=== PATIENT | female | born 1975 | race Caucasian/White ===

== ENCOUNTER 2021-05-17 23:48 | Emergency (ER) | payer OTHER ==
[~2021-05-17 23:48] MED LIST: IBUPROFEN600 MG PO
[2021-05-18 01:38] LABS: HEMOGLOBIN 13.8 gm/dl (12.3-15.3); RED BLOOD COUNT 4.5 M/UL (4.00-5.10)
[2021-05-18 02:01] LABS: BUN/CREATININE RATIO 4 (0-10)
== END 2021-05-18 03:00 | disposition left against medical advice (07) ==
LOC: ER1 23:48
PROVIDERS: Physician Assistant
DX: M79.602 Pain in left arm (principal); E78.5 Hyperlipidemia, unspecified; F17.210 Nicotine dependence, cigarettes, uncomplicated; Z88.0 Allergy status to penicillin; Z88.8 Allergy status to other drugs, medicaments and biological substances
CPT/HCPCS: 71045; 72125; 73030; 80053; 82550; 82553; 83874; 83880; 84484; 85025; 93005; 99284

== ENCOUNTER 2021-06-26 17:56 | Emergency (ER) | payer OTHER ==
[2021-06-26] MEDS ORDERED: Voltaren Gel 1 % TOP (18:39)
[2021-06-26] MEDS ORDERED: NORFLEX 100 MG100 MG PO (18:39)
== END 2021-06-26 18:47 | disposition home or self-care (01) ==
LOC: ER1 17:56
DX: G89.29 Other chronic pain (principal); M54.2 Cervicalgia; F17.210 Nicotine dependence, cigarettes, uncomplicated; E78.5 Hyperlipidemia, unspecified; Z88.8 Allergy status to other drugs, medicaments and biological substances; Z79.899 Other long term (current) drug therapy
CPT/HCPCS: 99283; J1885; J2270

== ENCOUNTER 2021-08-04 23:14 | Emergency (ER) | payer OTHER ==
[~2021-08-04 23:14] MED LIST changes: +NORFLEX 100 MG100 MG PO; +Voltaren Gel 1 % TOP
[2021-08-05] MEDS ORDERED: FEXMID7.5 MG PO (01:39)
[2021-08-05] MEDS ORDERED: MOBIC15 MG PO (01:39)
== END 2021-08-05 02:03 | disposition home or self-care (01) ==
LOC: ER1 23:14
DX: G89.29 Other chronic pain (principal); M54.2 Cervicalgia; F17.210 Nicotine dependence, cigarettes, uncomplicated
CPT/HCPCS: 96372; 99283; J1885; J2270

== ENCOUNTER 2021-09-15 17:28 | Emergency (ER) | payer OTHER ==
[~2021-09-15 17:28] MED LIST changes: +FEXMID7.5 MG PO; +MOBIC15 MG PO
== END 2021-09-15 18:45 | disposition left against medical advice (07) ==
LOC: ER1 17:28
DX: Z53.21 Procedure and treatment not carried out due to patient leaving prior to being seen by health care provider (principal)

== ENCOUNTER 2021-09-15 22:14 | Emergency (ER) | payer OTHER ==
[2021-09-15 23:02] LABS: HEMOGLOBIN 14.2 gm/dl (12.3-15.3); RED BLOOD COUNT 4.46 M/UL (4.00-5.10); WHITE BLOOD COUNT 14.5 K/UL (4.5-11.0)
[2021-09-15 23:51] LABS: BUN/CREATININE RATIO 7 (0-10)
== END 2021-09-16 02:44 | disposition home or self-care (01) ==
LOC: ER1 22:14
PROVIDERS: Physician Assistant
DX: E87.6 Hypokalemia (principal); R60.0 Localized edema; Z88.0 Allergy status to penicillin
CPT/HCPCS: 80053; 83880; 85025; 85379; 99284